=== PATIENT | female | born 1955 | race Caucasian/White ===

== ENCOUNTER 2022-06-08 07:31 | Day surgery (SDC) | payer OTHER ==
[~2022-06-08] VITALS: Ht 167.6 cm; Wt 159.1 kg
[~2022-06-08 07:31] MED LIST: AMLO10 PO; ASPIR 8181 M1 PO; ATOR40TA PO; GABA300 PO; LISI20 PO; Lisinopril-Hct1 EAC4 PO; METF500 PO; METO25ER PO; NOVOLIN 70100 UNIT/4 SQ; OXYB5 PO
[2022-06-08] MEDS ORDERED: TIZA4 PO (08:08)
--- NOTE | 2022-06-08 10:03 | NUR ---
PT GIVEN DC INSTRUCTIONS AND VERBALIZED UNDERSTANDING. IV OUT. PT CHANGED. PT TAKEN TO [facility] VIA WC. PT CALLED SISTER FOR RIDE.
== END 2022-06-08 11:56 | disposition home or self-care (01) ==
LOC: MHTC 07:31
DX: I35.0 Nonrheumatic aortic (valve) stenosis (principal); I12.9 Hypertensive chronic kidney disease with stage 1 through stage 4 chronic kidney disease, or unspecified chronic kidney disease; N18.9 Chronic kidney disease, unspecified; E11.22 Type 2 diabetes mellitus with diabetic chronic kidney disease; E78.5 Hyperlipidemia, unspecified; E66.01 Morbid (severe) obesity due to excess calories; G47.33 Obstructive sleep apnea (adult) (pediatric); Z88.5 Allergy status to narcotic agent; Z79.82 Long term (current) use of aspirin; Z79.4 Long term (current) use of insulin; Z79.899 Other long term (current) drug therapy
CPT/HCPCS: 93312; 93325; A9270; J2001; J2704; J7030

== ENCOUNTER 2022-08-21 06:08 | Day surgery (SDC) | payer OTHER ==
[~2022-08-21] VITALS: Ht 167.6 cm; Wt 160.0 kg
[~2022-08-21 06:08] MED LIST changes: +TIZA4 PO
--- NOTE | 2022-08-21 10:09 | NUR ---
PT AMBULATES TO RESTROOM AND BACK WITHOUT DIFF. NADN. VSS. R RADIAL TR BAND REMAINS IN PLACE. NO BLEEDING NOTED.
--- NOTE | 2022-08-21 11:50 | NUR ---
DISCHARGE INSTRUCTIONS REVIEWED WITH PT, VERBALIZES UNDERSTANDING OF INSTRUCTIONS. PT GETTING DRESSED AT THIS TIME.
--- NOTE | 2022-08-21 12:06 | NUR ---
PT DRESSED PER SELF. ASSISTANCE TO TIE SHOES. TR BANDS REMOVED AND AREA CLEANSED. CLOTH DOT PLACED. SALINE LOCK REMOVED WITH CATHETER INTACT. ARM BOARD TO R ARM. PT TO PRIVATE VEHICLE PER W/C WITH ONE STAFF. NO FURTHER QUESTIONS ABOUT DISCHARGE.
== END 2022-08-21 12:00 | disposition home or self-care (01) ==
LOC: MHTC 06:08 → ORSCMMR 06:09 → MHTC 12:00
DX: I35.0 Nonrheumatic aortic (valve) stenosis (principal); I25.10 Atherosclerotic heart disease of native coronary artery without angina pectoris; E66.9 Obesity, unspecified; E78.00 Pure hypercholesterolemia, unspecified; I10 Essential (primary) hypertension; E11.9 Type 2 diabetes mellitus without complications; Z79.4 Long term (current) use of insulin; Z88.5 Allergy status to narcotic agent; Z68.43 Body mass index [BMI] 50.0-59.9, adult
CPT/HCPCS: 93458; 99152; 99153; A9270; C1769; C1887; C1894; J1644; J2250; J7030; J7040; J7050; Q9967

== ENCOUNTER 2024-08-17 06:45 | Day surgery (SDC) | payer OTHER ==
[~2024-08-17] VITALS: Ht 167.6 cm; Wt 159.0 kg
[~2024-08-17 06:45] MED LIST changes: +LISINOPRIL-HCT1 EAC1 PO; +Lactated Ringer's 1,000 ML IV ONE; +Lidocaine 1%-Epineph 1:100000 20 ML MDV ONE; +Sodium Bicarb 8.4% 1 MEQ/ML 50 ML Vial ONE
--- NOTE | 2024-08-17 07:14 | NUR ---
08/17/24 0714 Estefani Urbina NO QUESTIONS OR CONCERS AT THIS TIME
[2024-08-17] MEDS ORDERED: Lactated Ringer's 1,000 ML IV ONE (07:35)
[2024-08-17] MEDS ORDERED: CeFAZolin Sodium 3,000 MG in NS 100 ML IV SCH (07:50)
[2024-08-17] MEDS ORDERED: Midazolam HCl 1MG / ML 2ML Vial ONE (08:09)
[2024-08-17 08:29] VITALS: BP 119/47
--- NOTE | 2024-08-17 08:57 | NUR ---
08/17/24 0857 BRIANA HAWKINS PT WAS NOT GIVEN SEDATION. LOCAL ONLY PER RN AND EDISON LEDEZMA PRINT MACHINE OPERATOR
== END 2024-08-17 08:55 | disposition home or self-care (01) ==
LOC: ORSCSDS 06:45
PROVIDERS: Orthopaedic Surgery
PROC: 01N54ZZ Release Median Nerve, Percutaneous Endoscopic Approach (ICD-10-PCS; principal; 2024-08-17 08:00)
DX: G56.02 Carpal tunnel syndrome, left upper limb (principal); E11.9 Type 2 diabetes mellitus without complications; E78.5 Hyperlipidemia, unspecified; I10 Essential (primary) hypertension; G47.33 Obstructive sleep apnea (adult) (pediatric); I73.9 Peripheral vascular disease, unspecified; E66.9 Obesity, unspecified; Z68.43 Body mass index [BMI] 50.0-59.9, adult; Z79.4 Long term (current) use of insulin; Z79.84 Long term (current) use of oral hypoglycemic drugs; Z79.82 Long term (current) use of aspirin; Z79.899 Other long term (current) drug therapy
CPT/HCPCS: 82947; J0690; J2250; J7120

== ENCOUNTER 2024-12-12 17:10 | Emergency (ER) | payer OTHER ==
[~2024-12-12] VITALS: Ht 167.6 cm; Wt 156.0 kg
[~2024-12-12 17:10] MED LIST changes: -LIDO700A20 TOP
[2024-12-12 17:21] VITALS: BP 148/59
[2024-12-12] MEDS ORDERED: Ketorolac Tromethamine 30mg Vial IM ONE (20:35)
[2024-12-12] MEDS ORDERED: Ketorolac Tromethamine 30mg Vial IV ONE (21:25)
[2024-12-12 21:30] LABS: BASOPHILS ABSOLUTE AUTO 0.07 K/mm3 (0.00-0.23); BASOPHILS PERCENT AUTO 1 % (0-2); EOSINOPHILS ABSOLUTE AUTO 0.22 K/mm3 (0.00-0.68); EOSINOPHILS PERCENT AUTO 3 % (0-6); Hematocrit 31.7 % (33.0-51.0); Hemoglobin 10.6 g/dL (11.5-16.0); IMMATURE GRAN ABSOLUTE AUTO 0.02 K/mm3 (0.00-0.10); IMMATURE GRAN PERCENT AUTO 0 % (0-1); LYMPHOCYTES PERCENT AUTO 31 % (21-46); MONOCYTES ABSOLUTE AUTO 0.51 K/mm3 (0.16-1.47); MONOCYTES PERCENT AUTO 7 % (4-13); Mean Corpuscular HGB 31.3 pg (26.0-34.0); Mean Corpuscular HGB Conc 33.4 g/dL (31.5-36.5); Mean Corpuscular Volume 94 fL (80-100); NEUTROPHILS ABSOLUTE AUTO 4.43 K/mm3 (1.96-9.15); NEUTROPHILS PERCENT AUTO 59 % (41-73); Platelet Count 210 K/mm3 (150-400); RDW Coefficient Variation 13.7 % (11.7-14.2); Red Blood Cell Count 3.39 M/mm3 (3.80-5.20); White Blood Cell Count 7.55 K/mm3 (4.00-11.30)
[2024-12-12 21:42] LABS: Source, Urine Clean Catch
[2024-12-12 21:47] LABS: Bun/Creatinine Ratio 31.3 (12.0-20.0); Calcium, Blood 9.5 mg/dL (8.5-10.1); Creatinine, Blood 1.66 mg/dL (0.40-1.00); Potassium, Blood 4.8 mmol/L (3.5-5.5)
[2024-12-12 21:48] LABS: Bilirubin, Urine Neg (Neg); Blood, Urine 2+ (Neg); Glucose Qualitative, Urine Neg (Neg); Ketones, Urine Neg (Neg); Leukocyte Esterase, Urine 1+ (Neg); Nitrite, Urine Neg (Neg); Protein, Urine 1+ (Neg); Specific Gravity, Urine 1.015 (1.003-1.022); Urobilinogen, Urine NORM (Normal)
[2024-12-12 22:35] LABS: Appearance, Urine Clear (Clear); Color, Urine Pale Yellow (P-Yellow)
[2024-12-12 22:37] LABS: Bacteria Few /hpf; Red Blood Cells, Urine 0-2 /hpf (0-2); Squamous Epithelial Cells Few /hpf (Few); White Blood Cells, Urine 0-2 /hpf (0-5)
[2024-12-12] MEDS ORDERED: LIDO700A20 TOP (22:41)
== END 2024-12-12 22:58 | disposition home or self-care (01) ==
LOC: ER 17:10
PROVIDERS: Emergency Medicine; Student in an Organized Health Care Education/Training Program
DX: R10.9 Unspecified abdominal pain (principal); K43.9 Ventral hernia without obstruction or gangrene; I10 Essential (primary) hypertension; E78.00 Pure hypercholesterolemia, unspecified; E11.9 Type 2 diabetes mellitus without complications; R30.9 Painful micturition, unspecified; Z95.2 Presence of prosthetic heart valve; Z79.4 Long term (current) use of insulin; Z79.84 Long term (current) use of oral hypoglycemic drugs; Z79.82 Long term (current) use of aspirin; Z79.899 Other long term (current) drug therapy
CPT/HCPCS: 74176; 76770; 80048; 81001; 85025; 87086; 96374; 99284-25; J1885

== ENCOUNTER → 2024-12-12 | Outpatient (CLI) | payer OTHER ==
[~2024-12-12] MED LIST changes: +LIDO700A20 TOP; -Lactated Ringer's 1,000 ML IV ONE; -Lidocaine 1%-Epineph 1:100000 20 ML MDV ONE; -Sodium Bicarb 8.4% 1 MEQ/ML 50 ML Vial ONE
[2024-12-12 18:22] LABS: Source, Urine Voided
[2024-12-12 19:36] LABS: Appearance, Urine Clear (Clear); Bilirubin, Urine Neg (Neg); Blood, Urine 2+ (Neg); Color, Urine Yellow (P-Yellow); Glucose Qualitative, Urine Neg (Neg); Ketones, Urine Neg (Neg); Leukocyte Esterase, Urine Neg (Neg); Nitrite, Urine Neg (Neg); Protein, Urine Neg (Neg); Specific Gravity, Urine 1.015 (1.003-1.022); Urobilinogen, Urine NORM (Normal)
[2024-12-12 19:44] LABS: Bacteria Few /hpf; Squamous Epithelial Cells Few /hpf (Few)
[2024-12-12 19:46] LABS: Hyaline Casts 0-2 /lpf (0-2)
== END | disposition home or self-care (01) ==
LOC: LAB SHORT 18:21
PROVIDERS: Family Medicine
DX: R30.9 Painful micturition, unspecified (principal)
CPT/HCPCS: 81001

== ENCOUNTER 2025-09-07 21:20 | Observation (INO) | payer OTHER ==
[~2025-09-07] VITALS: Ht 167.6 cm; Wt 163.2 kg
[~2025-09-07 21:20] MED LIST changes: +ASCO500; +CALCIUM CIT 311 EAC7 PO; +LIDO700A20 TOP; +NOVOLIN 70100 UNIT/4 SC
[2025-09-07] MEDS ORDERED: Ondansetron HCl 2 MG / ML 2ML Vial IV ONE (21:55)
[2025-09-07] MEDS ORDERED: FentaNYL Citrate 50 MCG/ML 2 ML Injection IV ONE (22:00)
[2025-09-07 22:05] LABS: BASOPHILS ABSOLUTE AUTO 0.06 K/mm3 (0.00-0.23); BASOPHILS PERCENT AUTO 1 % (0-2); EOSINOPHILS ABSOLUTE AUTO 0.18 K/mm3 (0.00-0.68); EOSINOPHILS PERCENT AUTO 2 % (0-6); Hematocrit 27.9 % (33.0-51.0); Hemoglobin 9.1 g/dL (11.5-16.0); IMMATURE GRAN ABSOLUTE AUTO 0.05 K/mm3 (0.00-0.10); IMMATURE GRAN PERCENT AUTO 0 % (0-1); LYMPHOCYTES ABSOLUTE AUTO 0.94 K/mm3 (0.84-5.20); LYMPHOCYTES PERCENT AUTO 8 % (21-46); MONOCYTES ABSOLUTE AUTO 0.68 K/mm3 (0.16-1.47); MONOCYTES PERCENT AUTO 6 % (4-13); Mean Corpuscular HGB Conc 32.6 g/dL (31.5-36.5); Mean Corpuscular Volume 95 fL (80-100); NEUTROPHILS ABSOLUTE AUTO 9.60 K/mm3 (1.96-9.15); NEUTROPHILS PERCENT AUTO 83 % (41-73); NRBC ABSOLUTE 0.00 K/mm3 (0.00-0.02); NRBC Auto 0.0 /100 WBC (0.0-0.2); Platelet Count 378 K/mm3 (150-400); RDW Coefficient Variation 14.4 % (11.7-14.2); RDW Standard Deviation 50.1 fL (35.1-46.3)
[2025-09-07 22:27] LABS: Alanine Aminotransfer (ALT/SGP 18.0 U/L (12-78); Albumin, Blood 2.5 g/dL (3.4-5.0); Albumin/Globulin Ratio 0.5 (0.8-1.8); Anion Gap 12.0 mmol/L (3-11); Aspartate Aminotrans (AST/SGOT 21.0 U/L (12-37); Bilirubin, Total 0.5 mg/dL (0.1-1.0); Blood Urea Nitrogen 98.0 mg/dL (8-24); CO2, Blood 26.0 mmol/L (21-32); Calcium, Blood 9.0 mg/dL (8.5-10.1); Chloride, Blood 103.0 mmol/L (98-108); Creatinine, Blood 2.65 mg/dL (0.40-1.00); Globulin, Blood 4.7 g/dL (2.2-4.0); Glucose, Blood 175.0 mg/dL (70-99); Potassium, Blood 5.6 mmol/L (3.5-5.5); Sodium, Blood 135.0 mmol/L (136-145); Total Protein, Blood 7.2 g/dL (6.4-8.2)
[2025-09-07] MEDS ORDERED: NS 1,000 ML IV SCH (22:35)
[2025-09-07] MEDS ORDERED: Vancomycin (Pharmacy Consult) IV PRN (23:05)
[2025-09-07] MEDS ORDERED: Cefepime HCl 1,000 MG in NS 100 ML IV ONE (23:05)
[2025-09-07] MEDS ORDERED: Vancomycin HCL 2,500 MG in NS 500 ML IV ONE (23:15)
[2025-09-08] MEDS ORDERED: NS 1,000 ML IV SCH (00:45)
[2025-09-08] MEDS ORDERED: Ondansetron HCl 2 MG / ML 2ML Vial IV PRN (03:05)
[2025-09-08] MEDS ORDERED: NS 1,000 ML IV ONE ×2 (03:05→05:20)
[2025-09-08] MEDS ORDERED: Vancomycin (Pharmacy Consult) IV SCH (03:10)
[2025-09-08] MEDS ORDERED: FentaNYL Citrate 50 MCG/ML 2 ML Injection IV PRN (03:10)
[2025-09-08] MEDS ORDERED: FLU VACC TS2025-26(6MOS UP)/PF 45 MCG/0.5 ML SYRINGE IM SCH (03:10)
[2025-09-08 04:44] LABS: BASOPHILS ABSOLUTE AUTO 0.04 K/mm3 (0.00-0.23); BASOPHILS PERCENT AUTO 0 % (0-2); EOSINOPHILS ABSOLUTE AUTO 0.12 K/mm3 (0.00-0.68); EOSINOPHILS PERCENT AUTO 1 % (0-6); Hematocrit 26.1 % (33.0-51.0); Hemoglobin 8.4 g/dL (11.5-16.0); IMMATURE GRAN ABSOLUTE AUTO 0.05 K/mm3 (0.00-0.10); IMMATURE GRAN PERCENT AUTO 1 % (0-1); LYMPHOCYTES ABSOLUTE AUTO 0.78 K/mm3 (0.84-5.20); LYMPHOCYTES PERCENT AUTO 9 % (21-46); MONOCYTES ABSOLUTE AUTO 0.64 K/mm3 (0.16-1.47); MONOCYTES PERCENT AUTO 7 % (4-13); Mean Corpuscular HGB Conc 32.2 g/dL (31.5-36.5); Mean Corpuscular Volume 96 fL (80-100); NEUTROPHILS ABSOLUTE AUTO 7.60 K/mm3 (1.96-9.15); NEUTROPHILS PERCENT AUTO 82 % (41-73); NRBC ABSOLUTE 0.00 K/mm3 (0.00-0.02); NRBC Auto 0.0 /100 WBC (0.0-0.2); Platelet Count 335 K/mm3 (150-400); RDW Coefficient Variation 14.5 % (11.7-14.2); RDW Standard Deviation 50.1 fL (35.1-46.3)
[2025-09-08 04:55] VITALS: BP 96/56
[2025-09-08] MEDS ORDERED: HYDROmorphone HCl/Pf 1MG SYR IV ONE (05:30)
[2025-09-08] MEDS ORDERED: SULTRIDS PO (05:34)
[2025-09-08] MEDS ORDERED: NOVOLIN 70100 UNIT/3 SC (05:45)
[2025-09-08] MEDS ORDERED: TIZA4 PO (05:46)
[2025-09-08] MEDS ORDERED: FURO40 PO (05:47)
[2025-09-08] MEDS ORDERED: OZEMPIC0.25 MG/02 SC (05:55)
[2025-09-08] MEDS ORDERED: METO50ER PO (06:05)
[2025-09-08 06:10] LABS: Alanine Aminotransfer (ALT/SGP 16.0 U/L (12-78); Albumin, Blood 2.3 g/dL (3.4-5.0); Albumin/Globulin Ratio 0.5 (0.8-1.8); Anion Gap 10.0 mmol/L (3-11); Aspartate Aminotrans (AST/SGOT 23.0 U/L (12-37); Bilirubin, Total 0.5 mg/dL (0.1-1.0); Blood Urea Nitrogen 99.0 mg/dL (8-24); CO2, Blood 23.0 mmol/L (21-32); Calcium, Blood 8.7 mg/dL (8.5-10.1); Chloride, Blood 107.0 mmol/L (98-108); Creatinine, Blood 2.74 mg/dL (0.40-1.00); Globulin, Blood 4.2 g/dL (2.2-4.0); Glucose, Blood 165.0 mg/dL (70-99); Potassium, Blood 6.3 mmol/L (3.5-5.5); Sodium, Blood 134.0 mmol/L (136-145); Total Protein, Blood 6.5 g/dL (6.4-8.2)
--- NOTE | 2025-09-08 06:48 | NUR ---
PATIENT ADMITTED TO ROOM 340, VIA STRETCHER, MAXIMUM ASSISTANCE TO MOVE TO BED, EXTREME PAIN AND MUSCLE SPASMS TO BACK DOWN RIGHT LEG, OXYGEN AT 2l/NC, LUNGS DIMINISHED TO BASES, PUREWICK IN INTACT, CLEAR YELLOW URINE, DRESSING INTACT TO LOWER BACK, BARIATRIC BED IN PLACE, DR NOTIFIED OF CRITICAL POTASSIUM, CALL LIGHT IN REACH, BED IN LOW AND LOCKED POSITION.
[2025-09-08] MEDS ORDERED: Dextrose 50% 50 ML Vial IV ONE (07:00)
[2025-09-08] MEDS ORDERED: Insulin Regular 100 UNIT/ML 10ML Vial IV ONE (07:00)
[2025-09-08] MEDS ORDERED: Insulin Human Lispro 100 Units/ML 3ML Syringe SC SCH (07:30)
[2025-09-08 07:32] VITALS: BP 100/52
[2025-09-08] MEDS ORDERED: Cefepime HCl 1,000 MG in NS 100 ML IV SCH (08:00)
[2025-09-08 09:29] VITALS: BP 100/52
[2025-09-08 10:35] LABS: Anion Gap 11.0 mmol/L (3-11); Blood Urea Nitrogen 100.0 mg/dL (8-24); CO2, Blood 21.0 mmol/L (21-32); Calcium, Blood 8.4 mg/dL (8.5-10.1); Chloride, Blood 108.0 mmol/L (98-108); Creatinine, Blood 3.02 mg/dL (0.40-1.00); Glucose, Blood 195.0 mg/dL (70-99); Potassium, Blood 6.3 mmol/L (3.5-5.5); Sodium, Blood 134.0 mmol/L (136-145)
--- NOTE | 2025-09-08 11:04 | NUR ---
SHIFT/COBRA TRANSFER NOTE: PATIENT A/OX3, FOLLOWING COMMANDS, PLEASANT AND COOPERATIVE c CARE. PATIENT MEDICATED FOR BACK PAIN PER EMAR c MOD EFFECT. PATIENT DENIES CP/PRESSURE, SOB, N/V AND DIZZINESS. PATIENT ON TELE, SR HR IN THE 80'S BPM. PATIENT AM POTASSIUM LAB RESULT WAS 6.3, RECEIVED OT DOSE HUMULIN R AND D50 PER ORDER. PATIENT ADMITTED FOR ABSCESS TO LOWER BACK FROM S/P SURGERY DONE IN [facility]. PATIENT WAS ACCEPTED BY DR. WHIPPLE NEURO PRINT TRAFFIC MANAGER AND ADMITTED TO SURGICAL UNIT RM 379 AT [facility] TR GIVEN TO CATRACHO WARREN AT 0906 REGARDING PATIENT CONDITION AND PLAN OF CARE. CATRACHO VERBALIZED UNDERSTANDING. PATIENT LEFT THE ROOM AT 1045, COBRA TRANSFER VIA GURNEY TO [facility]. ALL PERSONAL BELONGINGS WERE SENT c PATIENT (CELLPHONE AND GLASSESS). AT 1050 CALLED CATRACHO BACK REGARDING PATIENT REPEAT LAB RESULT OF POTASSIUM 6.3. ALSO NOTIFIED DR. SHERIFF VIA VOICE MAIL AND CREW LEADER GLUINGKELVIN STEEN.
--- NOTE | 2025-09-08 11:18 | NUR ---
ADDITIONAL NOTE: PATIENT COBRA TRANSFER c 2 PIV ACCESS; ONE IN R FOREARM AND LAC.
== END 2025-09-08 10:48 ==
LOC: ER 21:20 → MEDS 21:21 → ERHOLD 21:21 → MEDS 09-08 04:40 → ENPENDDIS 09-08 10:37 → MEDS 09-08 10:48
PROVIDERS: Emergency Medicine; ADMIT Internal Medicine
DX: L02.212 Cutaneous abscess of back [any part, except buttock and flank] (principal); I12.9 Hypertensive chronic kidney disease with stage 1 through stage 4 chronic kidney disease, or unspecified chronic kidney disease; E11.22 Type 2 diabetes mellitus with diabetic chronic kidney disease; N18.30 Chronic kidney disease, stage 3 unspecified; N17.9 Acute kidney failure, unspecified; E78.00 Pure hypercholesterolemia, unspecified; D64.9 Anemia, unspecified; E66.9 Obesity, unspecified; Z68.43 Body mass index [BMI] 50.0-59.9, adult; Z88.5 Allergy status to narcotic agent; Z88.4 Allergy status to anesthetic agent; Z79.82 Long term (current) use of aspirin; Z79.4 Long term (current) use of insulin; Z79.84 Long term (current) use of oral hypoglycemic drugs; Z79.899 Other long term (current) drug therapy
CPT/HCPCS: 36415; 72132; 80048; 80053; 82947; 83880; 85025; 87070; 87205; 96365; 96366; 96368; 96375; 96375-59; 96376; 99285-25; A9270; G0378; J0692; J1815; J2405; J3010; J3373; J7030; J7040; J7799; Q9967

== ENCOUNTER 2025-10-20 18:09 | Emergency (ER) | payer OTHER ==
[~2025-10-20] VITALS: Ht 167.6 cm; Wt 139.7 kg
[~2025-10-20 18:09] MED LIST changes: +FURO40 PO; +METO50ER PO; +NOVOLIN 70100 UNIT/3 SC; +OZEMPIC0.25 MG/02 SC; +SULTRIDS PO
[2025-10-20] MEDS ORDERED: METR500 PO (18:48)
[2025-10-20] MEDS ORDERED: MELA3 PO (18:52)
[2025-10-20] MEDS ORDERED: OXYC5 PO ×2 (18:53→18:54)
[2025-10-20 18:54] LABS: BASOPHILS ABSOLUTE AUTO 0.05 K/mm3 (0.00-0.23); BASOPHILS PERCENT AUTO 1 % (0-2); EOSINOPHILS ABSOLUTE AUTO 0.33 K/mm3 (0.00-0.68); EOSINOPHILS PERCENT AUTO 4 % (0-6); Hematocrit 34.8 % (33.0-51.0); Hemoglobin 11.4 g/dL (11.5-16.0); IMMATURE GRAN ABSOLUTE AUTO 0.06 K/mm3 (0.00-0.10); IMMATURE GRAN PERCENT AUTO 1 % (0-1); LYMPHOCYTES ABSOLUTE AUTO 1.43 K/mm3 (0.84-5.20); LYMPHOCYTES PERCENT AUTO 17 % (21-46); MONOCYTES ABSOLUTE AUTO 0.54 K/mm3 (0.16-1.47); MONOCYTES PERCENT AUTO 6 % (4-13); Mean Corpuscular HGB Conc 32.8 g/dL (31.5-36.5); Mean Corpuscular Volume 92 fL (80-100); NEUTROPHILS ABSOLUTE AUTO 6.11 K/mm3 (1.96-9.15); NEUTROPHILS PERCENT AUTO 72 % (41-73); NRBC ABSOLUTE 0.00 K/mm3 (0.00-0.02); NRBC Auto 0.0 /100 WBC (0.0-0.2); Platelet Count 297 K/mm3 (150-400); RDW Coefficient Variation 15.4 % (11.7-14.2); RDW Standard Deviation 52.3 fL (35.1-46.3)
[2025-10-20 19:10] LABS: Anion Gap 13.0 mmol/L (3-11); Blood Urea Nitrogen 32.0 mg/dL (8-24); CO2, Blood 26.0 mmol/L (21-32); Calcium, Blood 9.0 mg/dL (8.5-10.1); Chloride, Blood 96.0 mmol/L (98-108); Creatinine, Blood 1.11 mg/dL (0.40-1.00); Glucose, Blood 175.0 mg/dL (70-99); Magnesium, Blood 1.8 mg/dL (1.6-2.4); Potassium, Blood 4.4 mmol/L (3.5-5.5); Sodium, Blood 131.0 mmol/L (136-145)
[2025-10-21] MEDS ORDERED: GuaiFENesin 100 MG/5 ML 5ML UDC PO ONE (00:50)
[2025-10-21 03:00] VITALS: BP 133/66
== END 2025-10-21 03:34 | disposition home or self-care (01) ==
LOC: ER 18:09
PROVIDERS: Emergency Medicine
DX: J40 Bronchitis, not specified as acute or chronic (principal); E78.00 Pure hypercholesterolemia, unspecified; I10 Essential (primary) hypertension; E11.9 Type 2 diabetes mellitus without complications; Z79.82 Long term (current) use of aspirin; Z79.84 Long term (current) use of oral hypoglycemic drugs; Z79.4 Long term (current) use of insulin; Z79.899 Other long term (current) drug therapy; Z88.5 Allergy status to narcotic agent; Z88.8 Allergy status to other drugs, medicaments and biological substances
CPT/HCPCS: 71045; 71260; 80048; 83735; 84484; 85025; 85379; 93005; 93010; 99285-25; A9270; Q9967

== ENCOUNTER 2025-11-06 11:13 | Inpatient (IN) | payer OTHER ==
[~2025-11-06] VITALS: Ht 167.6 cm; Wt 143.0 kg
[~2025-11-06 11:13] MED LIST changes: +MELA3 PO; +METR500 PO; +OXYC5 PO
[2025-11-06 13:48] LABS: BASOPHILS ABSOLUTE AUTO 0.08 K/mm3 (0.00-0.23); BASOPHILS PERCENT AUTO 1 % (0-2); EOSINOPHILS ABSOLUTE AUTO 0.37 K/mm3 (0.00-0.68); EOSINOPHILS PERCENT AUTO 5 % (0-6); Hematocrit 35.9 % (33.0-51.0); Hemoglobin 11.4 g/dL (11.5-16.0); IMMATURE GRAN ABSOLUTE AUTO 0.07 K/mm3 (0.00-0.10); IMMATURE GRAN PERCENT AUTO 1 % (0-1); LYMPHOCYTES ABSOLUTE AUTO 1.55 K/mm3 (0.84-5.20); LYMPHOCYTES PERCENT AUTO 22 % (21-46); MONOCYTES ABSOLUTE AUTO 0.41 K/mm3 (0.16-1.47); MONOCYTES PERCENT AUTO 6 % (4-13); Mean Corpuscular HGB Conc 31.8 g/dL (31.5-36.5); Mean Corpuscular Volume 96 fL (80-100); NEUTROPHILS ABSOLUTE AUTO 4.74 K/mm3 (1.96-9.15); NEUTROPHILS PERCENT AUTO 66 % (41-73); NRBC ABSOLUTE 0.00 K/mm3 (0.00-0.02); NRBC Auto 0.0 /100 WBC (0.0-0.2); Platelet Count 300 K/mm3 (150-400); RDW Coefficient Variation 15.6 % (11.7-14.2); RDW Standard Deviation 55.7 fL (35.1-46.3)
[2025-11-06 14:11] LABS: Source, Urine Clean Catch
[2025-11-06 14:14] LABS: Alanine Aminotransfer (ALT/SGP 11.0 U/L (12-78); Albumin, Blood 3.3 g/dL (3.4-5.0); Albumin/Globulin Ratio 0.8 (0.8-1.8); Anion Gap 11.0 mmol/L (3-11); Aspartate Aminotrans (AST/SGOT 12.0 U/L (12-37); Bilirubin, Total 0.4 mg/dL (0.1-1.0); Blood Urea Nitrogen 28.0 mg/dL (8-24); CO2, Blood 27.0 mmol/L (21-32); Calcium, Blood 9.1 mg/dL (8.5-10.1); Chloride, Blood 100.0 mmol/L (98-108); Creatinine, Blood 1.07 mg/dL (0.40-1.00); Globulin, Blood 4.3 g/dL (2.2-4.0); Glucose, Blood 135.0 mg/dL (70-99); Magnesium, Blood 1.9 mg/dL (1.6-2.4); Phosphorus, Blood 3.7 mg/dL (2.5-4.9); Potassium, Blood 4.4 mmol/L (3.5-5.5); Sodium, Blood 134.0 mmol/L (136-145); Total Protein, Blood 7.6 g/dL (6.4-8.2)
[2025-11-06 14:28] LABS: Bilirubin, Urine Neg (Neg); Glucose Qualitative, Urine Neg (Neg); Ketones, Urine Neg (Neg); Leukocyte Esterase, Urine 2+ (Neg); Protein, Urine Neg (Neg); Specific Gravity, Urine 1.015 (1.003-1.022); Urobilinogen, Urine NORM (Normal)
[2025-11-06] MEDS ORDERED: NS 1,000 ML IV SCH ×2 (14:35→21:05)
[2025-11-06] MEDS ORDERED: Vancomycin HCL 2,000 MG in NS 520 ML IV ONE (14:35)
[2025-11-06] MEDS ORDERED: Cefepime HCl 2,000 MG in NS 100 ML IV ONE (14:35)
[2025-11-06 14:58] LABS: Color, Urine Pale Yellow (P-Yellow)
[2025-11-06 14:59] LABS: Red Blood Cells, Urine Not Seen /hpf (0-2); Yeast/Fungi Urine Many /hpf
[2025-11-06] MEDS ORDERED: Vancomycin (Pharmacy Consult) IV SCH (17:00)
[2025-11-06] MEDS ORDERED: FLU VACC TS2025(65UP)/MF59C/PF 45 MCG/0.5 ML SYRINGE IM SCH (17:00)
[2025-11-06] MEDS ORDERED: Ondansetron HCl 2 MG / ML 2ML Vial IV PRN (17:00)
[2025-11-06] MEDS ORDERED: Insulin Human Lispro 100 Units/ML 3ML Syringe SC SCH (17:30)
[2025-11-06 19:36] VITALS: BP 148/56
--- NOTE | 2025-11-06 19:43 | NUR ---
ADMISSION NOTE RECIEVED REPORT FOR PATIENT AT 1845, PATIENT ARRIVED TO UNIT DURING SHIFT CHANGE. BEDISDE SHIFT REPORT COMPLETED WITH SOLAR HOT WATER INSTALLER RN. PATIENT RESTING COMFORTABLY IN BED WITH CALL LIGHT WITHIN REACH. MED REC INCOMPLETE PATIENT UNAWARE OF DOSAGES OF MEDICATIONS SHE HAS BEEN TAKING AT [facility]. PATIENT STATES SHE HAS BEEN AT [facility] FOR TWO MONTHS AFTER HER LUMBAR SURGERY IN AUGUST 2025. CHRONIC MORRIS CATHETER IN PLACE, DRAINING TO GRAVITY. TELEMETRY ORDERED. NO OTHER CONCERNS AT THIS TIME.
[2025-11-06] MEDS ORDERED: Lactobacil 2-S.Thermo-Bifido 1 1 Cap PO SCH (21:00)
[2025-11-06] MEDS ORDERED: Miconazole Nitrate 2% 85 GM PWD TOP SCH (21:00)
--- NOTE | 2025-11-06 23:06 | NUR ---
THIS NURSE REVIEWED WOUND CARE ORDERS FROM [facility]. PT CONTACTED PHYSICIAN REGARDING WOUND AND WOUND CARE, PHYSICIAN DEFERED WOUND CARE ASSESSMENT TO DAY SHIFT PHYSICIAN TEAM. THIS NURSE FOLLOWED WOUND CARE INSTRUCTIONS TO MAKE SURE PT WOUND IS C/D/I. WILL PASS TO DAY SHIFT FOR DR TO ASSESS PT WOUND.
[2025-11-07] VITALS (7 sets, daily range): BP systolic 98–145; BP diastolic 46–70
[2025-11-07] MEDS ORDERED: Cefepime HCl 2,000 MG in NS 100 ML IV SCH
[2025-11-07 05:27] LABS: BASOPHILS ABSOLUTE AUTO 0.05 K/mm3 (0.00-0.23); BASOPHILS PERCENT AUTO 1 % (0-2); EOSINOPHILS ABSOLUTE AUTO 0.40 K/mm3 (0.00-0.68); EOSINOPHILS PERCENT AUTO 8 % (0-6); Hematocrit 32.6 % (33.0-51.0); Hemoglobin 10.4 g/dL (11.5-16.0); IMMATURE GRAN ABSOLUTE AUTO 0.02 K/mm3 (0.00-0.10); IMMATURE GRAN PERCENT AUTO 0 % (0-1); LYMPHOCYTES ABSOLUTE AUTO 0.97 K/mm3 (0.84-5.20); LYMPHOCYTES PERCENT AUTO 19 % (21-46); MONOCYTES ABSOLUTE AUTO 0.46 K/mm3 (0.16-1.47); MONOCYTES PERCENT AUTO 9 % (4-13); Mean Corpuscular HGB Conc 31.9 g/dL (31.5-36.5); Mean Corpuscular Volume 96 fL (80-100); NEUTROPHILS ABSOLUTE AUTO 3.20 K/mm3 (1.96-9.15); NEUTROPHILS PERCENT AUTO 63 % (41-73); NRBC ABSOLUTE 0.00 K/mm3 (0.00-0.02); NRBC Auto 0.0 /100 WBC (0.0-0.2); Platelet Count 259 K/mm3 (150-400); RDW Coefficient Variation 15.5 % (11.7-14.2); RDW Standard Deviation 55.0 fL (35.1-46.3)
[2025-11-07 05:44] LABS: Alanine Aminotransfer (ALT/SGP 10.0 U/L (12-78); Albumin, Blood 2.7 g/dL (3.4-5.0); Albumin/Globulin Ratio 0.7 (0.8-1.8); Anion Gap 9.0 mmol/L (3-11); Aspartate Aminotrans (AST/SGOT 15.0 U/L (12-37); Bilirubin, Total 0.4 mg/dL (0.1-1.0); Blood Urea Nitrogen 28.0 mg/dL (8-24); CO2, Blood 29.0 mmol/L (21-32); Calcium, Blood 8.7 mg/dL (8.5-10.1); Chloride, Blood 102.0 mmol/L (98-108); Creatinine, Blood 1.07 mg/dL (0.40-1.00); Globulin, Blood 4.0 g/dL (2.2-4.0); Glucose, Blood 123.0 mg/dL (70-99); Potassium, Blood 3.9 mmol/L (3.5-5.5); Sodium, Blood 136.0 mmol/L (136-145); Total Protein, Blood 6.7 g/dL (6.4-8.2)
--- NOTE | 2025-11-07 06:08 | NUR ---
SHIFT SUMMARY PT A&OX4 AND ANSWERS QUESTIONS APPROPRIATELY. PT ARRIVED ON UNIT AT 1855 AND WAS ORIENTED TO UNIT. PT HAS LUMBAR WOUND R/T POSTOP COMPLICATIONS. RECEIVED SCHEDULED AND PRN MEDICATIONS. VSS, NO COMPLAINTS OF CP/PRESSURE OR S0B. WOUND CARE PERFORMED ON LUMBAR WOUND PER ORDERS FROM [facility]. ASSISTED BY DALE MARIE. PT CATHETER REPLACED, CHRONIC MORRIS IN PLACE W/ ADMISSION. STERILE TECHNIQUE MAINTANED DURING PROCEDURE. NO ACUTE EVENTS AT THIS TIME. PT SPENT MOST OF SHIFT IN BED WITH EYES CLOSED AND RESPIRATIONS EVEN AND UNLABORED. PT LEFT IN POSITION OF SAFETY AND COMFORT WITH FALL PRECAUTIONS IN PLACE AND CALL LIGHT IN REACH.
[2025-11-07] MEDS ORDERED: Insulin Human Lispro 100 Units/ML 3ML Syringe SC SCH ×2 (07:30→17:30)
[2025-11-07] MEDS ORDERED: Enoxaparin 40 MG/0.4 ML SYR SC SCH (09:00)
[2025-11-07] MEDS ORDERED: Insulin Glargine-Yfgn 100 Unit/mL 3 ML SYR SC SCH (09:00)
[2025-11-07] MEDS ORDERED: Meropenem 2,000 MG in NS 250 ML IV SCH (13:00)
[2025-11-07] MEDS ORDERED: Multivitamins 1 Tab PO SCH (13:25)
[2025-11-07] MEDS ORDERED: Zinc Sulfate 220 MG Cap (Provides 50MG) PO SCH (13:30)
[2025-11-07] MEDS ORDERED: Ascorbic Acid 250 MG Chew PO SCH (13:30)
--- NOTE | 2025-11-07 18:23 | NUR ---
SHIFT SUMMARY PT AOX4, COOPERATIVE, ABLE TO MAKE NEEDS KNOWN. PT HAS BEEN BEDREST FOR DURATION OF SHIFT, DOES HAVE MUSCLE ACTIVITY IS BLE. ON TELE, ON ROOM AIR. TOELRATING MEDICATIONS. PT DOES HAVE CENTRAL LINE ACCESS, NS RUNNING AT 30ML/HR THROUGH LINE. MORRIS CATHETER INTACT, GUM ROLLING MACHINE TENDER DID REPORT LEAKING FROM URETHRA, THIS RN TUGGED SLIGHTLY ON CATHETER TO ENSURE PATENT DRAINING, WILL CONTINUE TO ASSESS. WOUND CARE PERFORMED PER INSTRUCTIONS IN CHART. WAS NOT ABLE TO GET PICS, WILL PASS ON TO REPORT. BED IN LOWEST POSITION, CALL LIGHT WITHIN REACH.
--- NOTE | 2025-11-07 20:31 | NUR ---
NURSE AT BEDSIDE, PT COMPLAINS OF PAIN IN HER FEET, DECLINES PAIN MEDICATION, COLD OR WARM THERAPY, STATES SHE JUST WANTS TO REST. PT DECLINED SCHEDULED MEDICATIONS AT THIS TIME. PT ALLOWED UNINTERUPTED REST FOR PAIN RELIEF PER PT PREFERENCES. NO ACUTE EVENTS AT THIS TIME. CALL PLACED TO DR RUGGIERO REGARDING WOUND CARE ORDERS. COMFIRMED WOUND CARE ORDERS OUTLINED BY [facility].
[2025-11-08] VITALS (8 sets, daily range): BP systolic 83–125; BP diastolic 43–74
--- NOTE | 2025-11-08 06:27 | NUR ---
SHIFT SUMMARY PT A&OX4 AND ANSWERS QUESTIONS APPROPRIATELY. VSS, NO COMPLAINTS OF CP/PRESSURE OR SOB. PT DECLINED HS MEDICATIONS AND STATED SHE "JUST WANTED TO SLEEP". WHEN ASKED AGAIN, PT STILL DECLINES MEDS. PT MEDICATED FOR PAIN AND WOUND CARE PROVIDED PER ORDERS. NO ACUTE EVENTS AT THIS TIME. PT SPENT MOST OF SHIFT IN BED WITH EYES CLOSED AND RESPIRATIONS EVEN AND UNLABORED. FALL PRECAUTIONS IN PLACE AND CALL LIGHT IN REACH.
[2025-11-08 08:24] LABS: BASOPHILS ABSOLUTE AUTO 0.05 K/mm3 (0.00-0.23); BASOPHILS PERCENT AUTO 1 % (0-2); EOSINOPHILS ABSOLUTE AUTO 0.41 K/mm3 (0.00-0.68); EOSINOPHILS PERCENT AUTO 7 % (0-6); Hematocrit 31.7 % (33.0-51.0); Hemoglobin 10.1 g/dL (11.5-16.0); IMMATURE GRAN ABSOLUTE AUTO 0.04 K/mm3 (0.00-0.10); IMMATURE GRAN PERCENT AUTO 1 % (0-1); LYMPHOCYTES ABSOLUTE AUTO 1.10 K/mm3 (0.84-5.20); LYMPHOCYTES PERCENT AUTO 18 % (21-46); MONOCYTES ABSOLUTE AUTO 0.53 K/mm3 (0.16-1.47); MONOCYTES PERCENT AUTO 9 % (4-13); Mean Corpuscular HGB Conc 31.9 g/dL (31.5-36.5); Mean Corpuscular Volume 95 fL (80-100); NEUTROPHILS ABSOLUTE AUTO 3.97 K/mm3 (1.96-9.15); NEUTROPHILS PERCENT AUTO 65 % (41-73); NRBC ABSOLUTE 0.00 K/mm3 (0.00-0.02); NRBC Auto 0.0 /100 WBC (0.0-0.2); Platelet Count 238 K/mm3 (150-400); RDW Coefficient Variation 15.9 % (11.7-14.2); RDW Standard Deviation 56.2 fL (35.1-46.3)
[2025-11-08 08:49] LABS: Alanine Aminotransfer (ALT/SGP 8.0 U/L (12-78); Albumin, Blood 2.6 g/dL (3.4-5.0); Albumin/Globulin Ratio 0.7 (0.8-1.8); Anion Gap 10.0 mmol/L (3-11); Aspartate Aminotrans (AST/SGOT 11.0 U/L (12-37); Bilirubin, Total 0.4 mg/dL (0.1-1.0); Blood Urea Nitrogen 29.0 mg/dL (8-24); CO2, Blood 27.0 mmol/L (21-32); Calcium, Blood 8.6 mg/dL (8.5-10.1); Chloride, Blood 104.0 mmol/L (98-108); Creatinine, Blood 1.5 mg/dL (0.40-1.00); Globulin, Blood 3.7 g/dL (2.2-4.0); Glucose, Blood 103.0 mg/dL (70-99); Potassium, Blood 3.7 mmol/L (3.5-5.5); Sodium, Blood 137.0 mmol/L (136-145); Total Protein, Blood 6.3 g/dL (6.4-8.2)
[2025-11-08] MEDS ORDERED: Insulin Glargine-Yfgn 100 Unit/mL 3 ML SYR SC SCH (09:00)
[2025-11-08] MEDS ORDERED: MIRALAX17 GM PO (12:17)
[2025-11-08] MEDS ORDERED: DOCU100 PO (12:18)
[2025-11-08] MEDS ORDERED: ACET500 PO (12:20)
[2025-11-08] MEDS ORDERED: ONDA4ODT (12:21)
--- NOTE | 2025-11-08 12:37 | NUR ---
NOTE PT BP IS 86/58. TAKEN MANUALLY. THIS RN WENT TO BREAK, REPORTED TO BREAK RN. BREAK RN REPORTED "PT GOT LISINOPRIL THIS AM BUT RECORDS SHOW PT STOPPED LISINOPRIL ON 10/24. MED REC COMPLETE." THIS RN REPORTED TO DR. CAMPBELL, DR. CAMPBELL REPORTED "GIVE BOLUS OF NS 50O ML WO BOLUS, D/C LISINOPRIL." PT REPORTS ASYMPTOMATIC.
[2025-11-08] MEDS ORDERED: NS 500 ML IV ONE ×3 (12:40→20:10)
--- NOTE | 2025-11-08 14:08 | NUR ---
NOTE DR. CAMPBELL NOTIFIED THAT PT BP POST BOLUS IS 89/43. DR. CAMPBELL ORDERED ANOTHER 500 WO IV BOLUS OF NS. PT ASYMPTOMATIC. PILL MACHINE OPERATOR NOTIFIED PT HAS A SUBCLAVIAN CENTERAL LINE. PILL MACHINE OPERATOR REPORTED "OK TO USE SINCE IT IS ALREADY AT [facility]KO RATE AND WE HAVE BEEN USING IT."
--- NOTE | 2025-11-08 15:43 | NUR ---
NOTE PT BP CHECKED POST SECOND BOLUS. BP IS 103/46. DR. CAMPBELL NOTIFED. NO NEW ORDERS.
[2025-11-08 15:46] LABS: Vancomycin, Trough 26.9 ug/mL (5.0-10.0)
--- NOTE | 2025-11-08 18:17 | NUR ---
SHIFT SUMMARY PT A&OX4. PT ADMITTED DUE TO POST OP INF. PT HAS MAINTAIN O2 ORDERS. PT O2 IS 92% ON ROOM AIR. PT REPORTS NO SOB AND NO CHEST PAIN. HOB ELEVATED. PT REPORTS PAIN IN BACK, RELIEVED W REPOSITION, PT TURNED Q2. PT DENIED PAIN MEDS, REPORTS "WANTED BEFORE BED." PT IS A LIFT PT. PT HAS SOFT BP. PT GOT X2 5OOML WO BOLUS OF NS. PT HAS CONT FLUIDS RUNNING AT 100ML/HR. PT ON TELE, NO TELE REPORTS NOTED. PT ACHS BLOOD SUGARS. PT DID NOT REQUIRE CORECTION SCALE BUT GETS 5 UNITS W MEALS. PT HAS MORRIS, MORRIS DRAINING W NO DEPENDENT LOOPS. MED REC COMPLETE BY BREAK RN, NOTIFIED. PT HAS WOUND CARE ORDERS. WOUND CARE COMPLETE BY SWATCH FOLDER PER ORDERS. PT VANCO TROUGH HIGH, DID NOT GET 1600 DOSE. PT GETS IV MEROPENEM. PT IN BED, BED IN LOWEST POSITION, LOCKED, CALL LIGHT IN REACH, PT CALLS APPROPRIATE.
[2025-11-09] VITALS (7 sets, daily range): BP systolic 79–122; BP diastolic 40–62
[2025-11-09] MEDS ORDERED: NS 500 ML IV ONE (01:20)
[2025-11-09 06:48] LABS: BASOPHILS ABSOLUTE AUTO 0.03 K/mm3 (0.00-0.23); BASOPHILS PERCENT AUTO 1 % (0-2); EOSINOPHILS ABSOLUTE AUTO 0.35 K/mm3 (0.00-0.68); EOSINOPHILS PERCENT AUTO 7 % (0-6); Hematocrit 30.7 % (33.0-51.0); Hemoglobin 9.7 g/dL (11.5-16.0); IMMATURE GRAN ABSOLUTE AUTO 0.03 K/mm3 (0.00-0.10); IMMATURE GRAN PERCENT AUTO 1 % (0-1); LYMPHOCYTES ABSOLUTE AUTO 1.18 K/mm3 (0.84-5.20); LYMPHOCYTES PERCENT AUTO 24 % (21-46); MONOCYTES ABSOLUTE AUTO 0.39 K/mm3 (0.16-1.47); MONOCYTES PERCENT AUTO 8 % (4-13); Mean Corpuscular HGB Conc 31.6 g/dL (31.5-36.5); Mean Corpuscular Volume 96 fL (80-100); NEUTROPHILS ABSOLUTE AUTO 2.95 K/mm3 (1.96-9.15); NEUTROPHILS PERCENT AUTO 60 % (41-73); NRBC ABSOLUTE 0.00 K/mm3 (0.00-0.02); NRBC Auto 0.0 /100 WBC (0.0-0.2); Platelet Count 252 K/mm3 (150-400); RDW Coefficient Variation 16.2 % (11.7-14.2); RDW Standard Deviation 57.4 fL (35.1-46.3)
[2025-11-09 07:25] LABS: Alanine Aminotransfer (ALT/SGP 7 U/L (12-78); Albumin, Blood 2.4 g/dL (3.4-5.0); Albumin/Globulin Ratio 0.7 (0.8-1.8); Anion Gap 9 mmol/L (3-11); Aspartate Aminotrans (AST/SGOT 12 U/L (12-37); Bilirubin, Total 0.4 mg/dL (0.1-1.0); Blood Urea Nitrogen 30 mg/dL (8-24); CO2, Blood 24 mmol/L (21-32); Calcium, Blood 8.3 mg/dL (8.5-10.1); Chloride, Blood 107 mmol/L (98-108); Creatinine, Blood 1.93 mg/dL (0.40-1.00); Globulin, Blood 3.6 g/dL (2.2-4.0); Glucose, Blood 91 mg/dL (70-99); Potassium, Blood 3.8 mmol/L (3.5-5.5); Sodium, Blood 136 mmol/L (136-145); Total Protein, Blood 6.0 g/dL (6.4-8.2); Vancomycin, Random 21.5 ug/mL
--- NOTE | 2025-11-09 08:10 | NUR ---
UMBRELLA FRAME MAKER SUMMARY PT A&OX4. BP CONTINUED TO BE LOW THIS SHIFT. DR. ROSALES NOTIFIED OF ALL VS. 500 ML NS BOLUS ADMIN TWICE AND 10 MG MIDODRINE ADMIN X 1. INITIAL BP WAS 86/44. LATEST BP AT 0323 OF 104/54. REMAINS ON TELE. SR AT 90 W/ PACS. R SUBCLAVIAN CENTRAL LINE CONTINUES TO RUN NS AT 100 ML/HR PER EMAR. PT STATED SHE WAS SCRATCHING AROUND DRESSING. PT EDUCATED NOT TO FIDDLE W/ DRESSING THIS COULD POSE AN INFECTION RISK. PT VERBALIZED UNDERSTANDING TO EDUCATION. TYLENOL ADMIN X 1 FOR LOWER BACK PAIN W/ GOOD EFFECT. DRESSING CHANGED PER WOUND CARE DETAILED INSTRUCTIONS AT AROUND 0430. PT TOLERATED DRESSING CHANGE WELL. BOTH LUMBAR DRESSING AND CENTRAL LINE DRESSING REMAINS CDI AT SHIFT CHANGE. CHRONIC MORRIS IN PLACE, DRAINING CLEAR, YELLOW URINE TO GRAVITY. FREE OF KINKS/OBSTRUCTIONS. BED RAILS UP X 2, BED IN LOWEST POSITION, BED WHEELS LOCKED, PERSONAL BELONGINGS AND CALL LIGHT WITHIN REACH FOR SAFETY. BEDSIDE SHIFT REPORT AND HANDOFF GIVEN TO DAY RN AT APPROX 0710.
[2025-11-09] MEDS ORDERED: Insulin Glargine-Yfgn 100 Unit/mL 3 ML SYR SC SCH (09:00)
--- NOTE | 2025-11-09 11:49 | NUR ---
CALLED DR GALLO. R/T BP. HOLD LASIX, METOPROLOL, GABAPENTIN AND LASIX.
[2025-11-09 15:21] LABS: Alanine Aminotransfer (ALT/SGP 11.0 U/L (12-78); Albumin, Blood 2.5 g/dL (3.4-5.0); Albumin/Globulin Ratio 0.6 (0.8-1.8); Anion Gap 9.0 mmol/L (3-11); Aspartate Aminotrans (AST/SGOT 19.0 U/L (12-37); Bilirubin, Total 0.4 mg/dL (0.1-1.0); Blood Urea Nitrogen 34.0 mg/dL (8-24); CO2, Blood 27.0 mmol/L (21-32); Calcium, Blood 8.4 mg/dL (8.5-10.1); Chloride, Blood 106.0 mmol/L (98-108); Creatinine, Blood 1.87 mg/dL (0.40-1.00); Globulin, Blood 3.9 g/dL (2.2-4.0); Glucose, Blood 118.0 mg/dL (70-99); Potassium, Blood 3.7 mmol/L (3.5-5.5); Sodium, Blood 138.0 mmol/L (136-145); Total Protein, Blood 6.4 g/dL (6.4-8.2)
--- NOTE | 2025-11-09 16:50 | NUR ---
PT PLEASANT AND COOP TODAY. STATES NOT WALKED SINCE SURGERY IN AUGUST. WOUND IN BACK OBSERVED WITH DR GALLO THIS AFT. PACKED AND COVERED WITH MEPILEX. SHE STATES PAIN MANAGED. SEEN BY THERAPY. PT STATES DID NOT GET UP TO WALK. NO OTHER NEW CONCERNS NOTED. BED IN LOW POSITION, CALL LITE IN REACH, CALLS APPROP
--- NOTE | 2025-11-09 19:12 | NUR ---
PT HAD SOME CONFUSION AND DISORIENTATION ABOUT 2-3 HRS AFTER TAKING GABAPENTIN TODAY. SHE HAD JUST AWAKENED FROM [place]. THIS CLEARED AFTER A FEW MINUTES. PASSED INFO TO LOUANN WARREN TO MAKE AWARE.
[2025-11-09] MEDS ORDERED: Meropenem 2,000 MG in NS 250 ML IV SCH (21:00)
[2025-11-10] VITALS (8 sets, daily range): BP systolic 100–133; BP diastolic 46–58
[2025-11-10 05:59] LABS: BASOPHILS ABSOLUTE AUTO 0.04 K/mm3 (0.00-0.23); BASOPHILS PERCENT AUTO 1 % (0-2); EOSINOPHILS ABSOLUTE AUTO 0.39 K/mm3 (0.00-0.68); EOSINOPHILS PERCENT AUTO 7 % (0-6); Hematocrit 31.4 % (33.0-51.0); Hemoglobin 9.9 g/dL (11.5-16.0); IMMATURE GRAN ABSOLUTE AUTO 0.04 K/mm3 (0.00-0.10); IMMATURE GRAN PERCENT AUTO 1 % (0-1); LYMPHOCYTES ABSOLUTE AUTO 1.49 K/mm3 (0.84-5.20); LYMPHOCYTES PERCENT AUTO 27 % (21-46); MONOCYTES ABSOLUTE AUTO 0.41 K/mm3 (0.16-1.47); MONOCYTES PERCENT AUTO 7 % (4-13); Mean Corpuscular HGB Conc 31.5 g/dL (31.5-36.5); Mean Corpuscular Volume 96 fL (80-100); NEUTROPHILS ABSOLUTE AUTO 3.19 K/mm3 (1.96-9.15); NEUTROPHILS PERCENT AUTO 57 % (41-73); NRBC ABSOLUTE 0.00 K/mm3 (0.00-0.02); NRBC Auto 0.0 /100 WBC (0.0-0.2); Platelet Count 265 K/mm3 (150-400); RDW Coefficient Variation 16.1 % (11.7-14.2); RDW Standard Deviation 57.6 fL (35.1-46.3)
[2025-11-10 06:32] LABS: Alanine Aminotransfer (ALT/SGP 13 U/L (12-78); Albumin, Blood 2.2 g/dL (3.4-5.0); Albumin/Globulin Ratio 0.6 (0.8-1.8); Anion Gap 10 mmol/L (3-11); Aspartate Aminotrans (AST/SGOT 25 U/L (12-37); Bilirubin, Total 0.3 mg/dL (0.1-1.0); Blood Urea Nitrogen 31 mg/dL (8-24); CO2, Blood 24 mmol/L (21-32); Calcium, Blood 8.7 mg/dL (8.5-10.1); Chloride, Blood 107 mmol/L (98-108); Creatinine, Blood 1.71 mg/dL (0.40-1.00); Globulin, Blood 3.8 g/dL (2.2-4.0); Glucose, Blood 85 mg/dL (70-99); Potassium, Blood 3.7 mmol/L (3.5-5.5); Sodium, Blood 137 mmol/L (136-145); Total Protein, Blood 6.0 g/dL (6.4-8.2); Vancomycin, Random 18.4 ug/mL
--- NOTE | 2025-11-10 06:35 | NUR ---
JUNIOR ACCOUNTING CLERK SUMMARY PT A&OX4, VSS. ABLE TO COMMUNICATE NEEDS APPROPRIATELY. PT HAS BEEN ASLEEP FOR MOST OF THE NIGHT. CHEST RISE/RESPIRATIONS NOTED. REMAINS ON TELE. SR AT 81. NS CONT TO INF AT 100 ML/HR PER EMAR. LUMBAR WOUND DRESSING CHANGED AROUND 0400 PER WOUND CARE ORDERS. OXYCODONE ADMIN X 1 FOR 6 LOWER BACK PAIN W/ GOOD EFFECT. MORRIS REMAINS IN PLACE, DRAINING CLEAR, YELLOW URINE TO GRAVITY. BED RAILS UP X 2, BED IN LOWEST POSITION, BED WHEELS LOCKED, PERSONAL BELONGINGS AND CALL LIGHT WITHIN REACH FOR SAFETY.
[2025-11-10 14:31] LABS: Alanine Aminotransfer (ALT/SGP 15.0 U/L (12-78); Albumin, Blood 2.3 g/dL (3.4-5.0); Albumin/Globulin Ratio 0.6 (0.8-1.8); Anion Gap 7.0 mmol/L (3-11); Aspartate Aminotrans (AST/SGOT 28.0 U/L (12-37); Bilirubin, Total 0.3 mg/dL (0.1-1.0); Blood Urea Nitrogen 29.0 mg/dL (8-24); CO2, Blood 28.0 mmol/L (21-32); Calcium, Blood 8.3 mg/dL (8.5-10.1); Chloride, Blood 108.0 mmol/L (98-108); Creatinine, Blood 1.6 mg/dL (0.40-1.00); Globulin, Blood 3.6 g/dL (2.2-4.0); Glucose, Blood 127.0 mg/dL (70-99); Potassium, Blood 3.6 mmol/L (3.5-5.5); Sodium, Blood 139.0 mmol/L (136-145); Total Protein, Blood 5.9 g/dL (6.4-8.2)
--- NOTE | 2025-11-10 15:36 | NUR ---
NOTIFIED RE 8 BEAT RUN OF SVT, PT NOW SR @ 75. PT ASYMPTOMATIC - DENIES CHEST PAIN OR PALPITATIONS. BP CURRENT 121/56. NO NEW ORDERS AT THIS TIME. PT RESTING COMFORTABLY IN BED WITH CALL LIGHT IN REACH.
--- NOTE | 2025-11-10 17:19 | NUR ---
SHIFT SUMMARY NO ACUTE CHANGES, A/Ox4, ABLE TO MAKE NEEDS KNOWN AND USING CALL SYSTEM APPROPRIATELY. MEDICATED FOR PAIN PER EMAR. WOUND CARE TO BACK COMPLETED PER ORDERS, PT TOLERATED WELL. NEW PHOTOS OBTAINED AND PLACED IN PT CHART. MORRIS REMAINS PATENT AND DRAINING CLEAR YELLOW URINE TO GRAVITY. YEAST NOTED TO ABD FOLDS WITH EXCORIATION - AREA CLEANSED AND NYSTATIN POWDER APPLIED PER ORDERS, RN ALSO APPLIED SILVER CLOTH TO AREA. NS RUNNING @ 100 ML/HR INTO CENTRAL LINE. CHG BATH COMPLETED ON NOC SHIFT, DUE TO BE COMPLETED AGAIN DURING NOC SHIFT. CATHETER CARE COMPLETED BY PODODERMATOLOGIST USING CATH WIPES. PT CURRENTLY RESTING IN BED WITH BED IN LOWEST POSITION AND CALL LIGHT WITHIN REACH.
[2025-11-11] VITALS (7 sets, daily range): BP systolic 102–139; BP diastolic 34–78
--- NOTE | 2025-11-11 06:49 | NUR ---
SHIFT SUMMARY: PT IS AOX4, VERY PLEASANT AND RECEPTIVE TO CARE. SHE IS BEDFAST AND USES A BEDPAN FOR BOWEL MOVEMENTS. SHE COMMUNICATES HER NEEDS AND UTILIZES THE CALL LIGHT APPROPRIATELY. PT DENIES PAIN AND DECLINES AVAILABLE PRNS THIS SHIFT. NO ACUTE EVENTS/CHANGES. PT MOVED TO A BARIATRIC BED THIS AM. PERFORMED WOUND CARE AND REPLACED DRESSING AT 0610. PT TOLERATED WELL AND IS CURRENTLY RESTING IN BED WATCHING TV, BED IN LOWEST POSITION, LOCKED, AND CALL LIGHT WITHIN REACH.
[2025-11-11 13:47] LABS: Alanine Aminotransfer (ALT/SGP 20.0 U/L (12-78); Albumin, Blood 2.4 g/dL (3.4-5.0); Albumin/Globulin Ratio 0.6 (0.8-1.8); Anion Gap 9.0 mmol/L (3-11); Aspartate Aminotrans (AST/SGOT 22.0 U/L (12-37); Bilirubin, Total 0.4 mg/dL (0.1-1.0); Blood Urea Nitrogen 27.0 mg/dL (8-24); CO2, Blood 24.0 mmol/L (21-32); Calcium, Blood 8.6 mg/dL (8.5-10.1); Chloride, Blood 109.0 mmol/L (98-108); Creatinine, Blood 1.27 mg/dL (0.40-1.00); Globulin, Blood 3.8 g/dL (2.2-4.0); Glucose, Blood 100.0 mg/dL (70-99); Potassium, Blood 3.6 mmol/L (3.5-5.5); Sodium, Blood 138.0 mmol/L (136-145); Total Protein, Blood 6.2 g/dL (6.4-8.2)
[2025-11-11] MEDS ORDERED: Meropenem 2,000 MG in NS 250 ML IV SCH (18:00)
--- NOTE | 2025-11-11 18:23 | NUR ---
END OF SHIFT NOTE PATIENT RESTING IN BED. A&O4, ABLE TO MAKE NEEDS KNOWN. BED IN LOW POSITION, CALL LIGHT IN REACH. PATIENT DENIES NEEDS AT THIS TIME. PATIENT REPOSITIONED T/O THE DAY, WOUND CARE DONE, LOTION APPLIED TO PATIENTS FEET AND CENTRAL LINE INFUSING TO ORDER. PATIENT UNDERSTANDS POSSIBLE D/C PLAN, FRIEND IN TODAY TO VISIT. MORRIS DRAINING TO GRAVITY, TELE IN PLACE. NO OTHER CONCERNS FOR THIS SHIFT.
[2025-11-12 04:16] VITALS: BP 133/58
--- NOTE | 2025-11-12 05:25 | NUR ---
SHIFT SUMMARY NOC PT A/O X 4. PLEASANT AND COOPERATIVE WITH CARE. VSS. HS CBG 151 CNI. NO ACUTE EVENTS TO REPORT. PT HAS RIGHT SUBCLAVIAN CENTRAL LINE INUFSING IVF/ABX PER EMAR. CHRONIC MORRIS IN PLACE FOR OVERACTIVE BLADDER DRAINING YELLOW URINE TO GRAVITY. ON TELE SINUS RHYTHM IN 80'S. LUMBAR WOUND CARE PROVIDED PER ORDERS. PT CURRENTLY RESTING WITH BED IN LOWEST POSITION, AND CALL LIGHT WITHIN REACH.
[2025-11-12 05:32] LABS: BASOPHILS ABSOLUTE AUTO 0.04 K/mm3 (0.00-0.23); BASOPHILS PERCENT AUTO 1 % (0-2); EOSINOPHILS ABSOLUTE AUTO 0.59 K/mm3 (0.00-0.68); EOSINOPHILS PERCENT AUTO 10 % (0-6); Hematocrit 31.3 % (33.0-51.0); Hemoglobin 10.1 g/dL (11.5-16.0); IMMATURE GRAN ABSOLUTE AUTO 0.02 K/mm3 (0.00-0.10); IMMATURE GRAN PERCENT AUTO 0 % (0-1); LYMPHOCYTES ABSOLUTE AUTO 1.67 K/mm3 (0.84-5.20); LYMPHOCYTES PERCENT AUTO 27 % (21-46); MONOCYTES ABSOLUTE AUTO 0.49 K/mm3 (0.16-1.47); MONOCYTES PERCENT AUTO 8 % (4-13); Mean Corpuscular HGB Conc 32.3 g/dL (31.5-36.5); Mean Corpuscular Volume 95 fL (80-100); NEUTROPHILS ABSOLUTE AUTO 3.40 K/mm3 (1.96-9.15); NEUTROPHILS PERCENT AUTO 55 % (41-73); NRBC ABSOLUTE 0.00 K/mm3 (0.00-0.02); NRBC Auto 0.0 /100 WBC (0.0-0.2); Platelet Count 266 K/mm3 (150-400); RDW Coefficient Variation 16.2 % (11.7-14.2); RDW Standard Deviation 56.9 fL (35.1-46.3)
[2025-11-12 05:59] LABS: Alanine Aminotransfer (ALT/SGP 13.0 U/L (12-78); Albumin, Blood 2.4 g/dL (3.4-5.0); Albumin/Globulin Ratio 0.6 (0.8-1.8); Anion Gap 10.0 mmol/L (3-11); Aspartate Aminotrans (AST/SGOT 17.0 U/L (12-37); Bilirubin, Total 0.6 mg/dL (0.1-1.0); Blood Urea Nitrogen 23.0 mg/dL (8-24); CO2, Blood 23.0 mmol/L (21-32); Calcium, Blood 8.7 mg/dL (8.5-10.1); Chloride, Blood 109.0 mmol/L (98-108); Creatinine, Blood 1.03 mg/dL (0.40-1.00); Globulin, Blood 3.9 g/dL (2.2-4.0); Glucose, Blood 108.0 mg/dL (70-99); Potassium, Blood 3.6 mmol/L (3.5-5.5); Sodium, Blood 138.0 mmol/L (136-145); Total Protein, Blood 6.3 g/dL (6.4-8.2)
[2025-11-12 07:39] VITALS: BP 106/44
[2025-11-12] MEDS ORDERED: Insulin Glargine-Yfgn 100 Unit/mL 3 ML SYR SC SCH (09:00)
[2025-11-12 11:46] VITALS: BP 149/81
[2025-11-12 15:55] VITALS: BP 121/61
--- NOTE | 2025-11-12 18:35 | NUR ---
END OF SHIFT NOTE PATIENT RESTING IN BED, A&O4, BED IN LOWEST POSITION, CALL LIGHT IN REACH. WOUND CARE DONE TO ORDER ABOUT 1700, FOAM DRESSING APPLIED TO COCCYX ALSO FOR SMALL PRESSURE WOUND. PATIENT GIVEN EDUCATION ABOUT WEIGHT SHIFTING AND Q2 TURNS, PATIENT REFUSED TO BE TURN BEFORE DINNER, CAN ADJUST SELF IN BED SOME. PATIENT WORKED WITH PHYSICAL THERAPY TODAY, PLANS TO GET INTO CHAIR TOMORROW. BOWEL MOVEMENT TODAY, CATH IN PLACE, DRAINING TO GRAVITY, YELLOW URINE. PATIENT DENIES NEEDS AT THIS TIME. NO OTHER CONCERNS.
[2025-11-12 19:36] VITALS: BP 151/62
[2025-11-13 00:16] VITALS: BP 129/61
[2025-11-13 03:58] VITALS: BP 137/75
[2025-11-13 05:34] LABS: BASOPHILS ABSOLUTE AUTO 0.06 K/mm3 (0.00-0.23); BASOPHILS PERCENT AUTO 1 % (0-2); EOSINOPHILS ABSOLUTE AUTO 0.61 K/mm3 (0.00-0.68); EOSINOPHILS PERCENT AUTO 11 % (0-6); Hematocrit 29.0 % (33.0-51.0); Hemoglobin 9.4 g/dL (11.5-16.0); IMMATURE GRAN ABSOLUTE AUTO 0.03 K/mm3 (0.00-0.10); IMMATURE GRAN PERCENT AUTO 1 % (0-1); LYMPHOCYTES ABSOLUTE AUTO 1.70 K/mm3 (0.84-5.20); LYMPHOCYTES PERCENT AUTO 29 % (21-46); MONOCYTES ABSOLUTE AUTO 0.60 K/mm3 (0.16-1.47); MONOCYTES PERCENT AUTO 10 % (4-13); Mean Corpuscular HGB Conc 32.4 g/dL (31.5-36.5); Mean Corpuscular Volume 95 fL (80-100); NEUTROPHILS ABSOLUTE AUTO 2.81 K/mm3 (1.96-9.15); NEUTROPHILS PERCENT AUTO 48 % (41-73); NRBC ABSOLUTE 0.00 K/mm3 (0.00-0.02); NRBC Auto 0.0 /100 WBC (0.0-0.2); Platelet Count 246 K/mm3 (150-400); RDW Coefficient Variation 16.4 % (11.7-14.2); RDW Standard Deviation 57.4 fL (35.1-46.3)
[2025-11-13 06:04] LABS: Alanine Aminotransfer (ALT/SGP 13.0 U/L (12-78); Albumin, Blood 2.3 g/dL (3.4-5.0); Albumin/Globulin Ratio 0.7 (0.8-1.8); Anion Gap 8.0 mmol/L (3-11); Aspartate Aminotrans (AST/SGOT 14.0 U/L (12-37); Bilirubin, Total 0.4 mg/dL (0.1-1.0); Blood Urea Nitrogen 20.0 mg/dL (8-24); CO2, Blood 25.0 mmol/L (21-32); Calcium, Blood 8.9 mg/dL (8.5-10.1); Chloride, Blood 113.0 mmol/L (98-108); Creatinine, Blood 0.96 mg/dL (0.40-1.00); Globulin, Blood 3.4 g/dL (2.2-4.0); Glucose, Blood 85.0 mg/dL (70-99); Potassium, Blood 3.7 mmol/L (3.5-5.5); Sodium, Blood 142.0 mmol/L (136-145); Total Protein, Blood 5.7 g/dL (6.4-8.2)
--- NOTE | 2025-11-13 06:07 | NUR ---
SHIFT SUMMARY: PT IS AOX4, PLEASANT, AND RECEPTIVE TO CARE. SHE IS BEDFAST AND REQUIRES 2-3 PERSONS TO ASSIST WITH TURNING. WE UTILIZED THE CEILING LIFT TODAY TO BOOST HER UP IN BED AND SHE TOLERATED THIS WELL. PT C / O MILD PAIN AND WAS TREATED PER EMAR WITH REPORTED RELIEF. WOUND CARE COMPLETED PER ORDERS AT 0530. THIS RN ALSO PERFORMED FOOT CARE AND APPLIED MOISTURIZER AFTER CLEANSING THE SKIN. NO ACUTE EVENTS THIS SHIFT. PT RESTING IN BED, WHEELS LOCKED AND BED IS IN LOWEST POSITION. BEDSIDE TABLE, PERSONAL BELONGINGS, AND CALL LIGHT WITHIN REACH.
[2025-11-13 07:45] VITALS: BP 130/69
[2025-11-13] MEDS ORDERED: ONDA4ODT MM (11:11)
[2025-11-13] MEDS ORDERED: FAMO20 PO (11:13)
[2025-11-13] MEDS ORDERED: INSULANI SC (11:15)
[2025-11-13] MEDS ORDERED: BASAGLAR K100 UNIT/1 SC (11:16)
[2025-11-13] MEDS ORDERED: NYAMYC15 G1 TOP (11:18)
[2025-11-13] MEDS ORDERED: SENN187 PO (11:21)
[2025-11-13] MEDS ORDERED: TRAZ50 PO (11:22)
[2025-11-13] MEDS ORDERED: ZINC220 PO (11:22)
[2025-11-13 12:00] VITALS: BP 119/72
--- NOTE | 2025-11-13 14:52 | NUR ---
discharge pt discharged via w/c accompanied by roll off driver. Right chest central line patent. left in place for antiobitic therapy. Ceiling lift used to transfer from bed to w/c. care ongoing.
== END 2025-11-13 14:30 | DRG 862 ==
LOC: ER 11:13 → MEDS 16:54 → ERHOLD 16:54 → MEDS 18:58 → ENPENDDIS 11-13 10:36 → MEDS 11-13 14:30
PROVIDERS: Family Medicine; Internal Medicine; Student in an Organized Health Care Education/Training Program; ADMIT Family Medicine
PROC: 0T9B70Z Drainage of Bladder with Drainage Device, Via Natural or Artificial Opening (ICD-10-PCS; principal; 2025-11-06)
PROC: 3E03329 Introduction of Other Anti-infective into Peripheral Vein, Percutaneous Approach (ICD-10-PCS; 2025-11-06)
PROC: 3E02340 Introduction of Influenza Vaccine into Muscle, Percutaneous Approach (ICD-10-PCS; 2025-11-06)
DX: T81.44XA Sepsis following a procedure, initial encounter (principal); A41.50 Gram-negative sepsis, unspecified; N18.4 Chronic kidney disease, stage 4 (severe); I50.32 Chronic diastolic (congestive) heart failure; I13.0 Hypertensive heart and chronic kidney disease with heart failure and stage 1 through stage 4 chronic kidney disease, or unspecified chronic kidney disease; Z68.42 Body mass index [BMI] 45.0-49.9, adult; E87.1 Hypo-osmolality and hyponatremia; E87.20 Acidosis, unspecified; Z16.24 Resistance to multiple antibiotics; E66.01 Morbid (severe) obesity due to excess calories; E11.65 Type 2 diabetes mellitus with hyperglycemia; E11.22 Type 2 diabetes mellitus with diabetic chronic kidney disease; E11.51 Type 2 diabetes mellitus with diabetic peripheral angiopathy without gangrene; E78.00 Pure hypercholesterolemia, unspecified; E78.5 Hyperlipidemia, unspecified; N32.81 Overactive bladder; M54.50 Low back pain, unspecified; E55.9 Vitamin D deficiency, unspecified; K11.7 Disturbances of salivary secretion; G56.01 Carpal tunnel syndrome, right upper limb; M17.10 Unilateral primary osteoarthritis, unspecified knee; E11.621 Type 2 diabetes mellitus with foot ulcer; E04.1 Nontoxic single thyroid nodule; M62.830 Muscle spasm of back; E27.9 Disorder of adrenal gland, unspecified; R53.81 Other malaise; B96.89 Other specified bacterial agents as the cause of diseases classified elsewhere; G47.00 Insomnia, unspecified; L89.611 Pressure ulcer of right heel, stage 1; Z98.1 Arthrodesis status; Z23 Encounter for immunization; Z88.8 Allergy status to other drugs, medicaments and biological substances; Z98.890 Other specified postprocedural states; Z88.5 Allergy status to narcotic agent; Z79.899 Other long term (current) drug therapy; Z79.891 Long term (current) use of opiate analgesic; Z79.4 Long term (current) use of insulin; Z79.82 Long term (current) use of aspirin; Z79.84 Long term (current) use of oral hypoglycemic drugs; Z95.2 Presence of prosthetic heart valve; Z87.39 Personal history of other diseases of the musculoskeletal system and connective tissue
CPT/HCPCS: 36415; 51702; 74177; 80053; 80202; 81001; 82947; 83605; 83735; 84100; 85025; 87040; 87086; 96361; 96365-59; 96366; 96367; 97110; 97161; 97530; 99285-25; A9270; J0692; J1650; J1815; J2185; J3373; J7030; J7040; J7050; Q9967